=== PATIENT | female | born 1955 | race Caucasian/White ===

== ENCOUNTER → 2017-02-02 | Outpatient (CLI) | payer BC ==
[~2017-02-02] MED LIST: ALBUTEROL0.63 MG/3 INH; COMBIVENT0.074 GM/I INH; DALIRESP500 MCG PO; HYDROCHLOROTHIA25 MG PO; INCRUSE ELLI62.5 MCG INH; LEVAQUIN750 MG PO; LEXAPRO10 MG PO; METOPROLOL TART25 MG PO; MUCINEX600 MG PO; PREDNISONE10 M1 PO; PREDNISONE10 MG PO; SYMBICORT 16010.2 GM INH
== END ==
LOC: HEART 5 13:56
DX: J44.1 Chronic obstructive pulmonary disease with (acute) exacerbation (principal); J43.9 Emphysema, unspecified; I51.7 Cardiomegaly; J98.4 Other disorders of lung
CPT/HCPCS: 71020-FX

== ENCOUNTER → 2017-02-03 | Outpatient (CLI) | payer BC | LOC: LAB 15:39 | DX: J44.1 Chronic obstructive pulmonary disease with (acute) exacerbation (principal) | CPT/HCPCS: 87070; 87205 ==

== ENCOUNTER 2017-03-29 04:14 | Inpatient (IN) | payer BC ==
[~2017-03-29] VITALS: Ht 162.6 cm; Wt 65.8 kg
[2017-03-29 05:14] LABS: HEMOGLOBIN 13.1 gm/dl (12.3-15.3); RED BLOOD COUNT 4.56 M/UL (4.00-5.10); WHITE BLOOD COUNT 16.2 K/UL (4.5-11.0)
[2017-03-29 05:46] LABS: BUN/CREATININE RATIO 27 (0-10)
[2017-03-29] MEDS ORDERED: SYMBICORT 16010.2 GM INH (11:25)
[2017-03-29] MEDS ORDERED: INCRUSE ELLI62.5 MCG INH (11:26)
[2017-03-29] MEDS ORDERED: ALBUTEROL0.63 MG/3 INH (11:26)
[2017-03-29] MEDS ORDERED: DALIRESP500 MCG PO (11:26)
[2017-03-29] MEDS ORDERED: HYDROCHLOROTHIA25 MG PO (11:27)
[2017-03-29] MEDS ORDERED: LEXAPRO10 MG PO (11:27)
[2017-03-29] MEDS ORDERED: COMBIVENT0.074 GM/I INH (11:28)
[2017-03-30 05:12] LABS: HEMOGLOBIN 12.7 gm/dl (12.3-15.3); RED BLOOD COUNT 4.46 M/UL (4.00-5.10); WHITE BLOOD COUNT 15.9 K/UL (4.5-11.0)
[2017-03-30 05:41] LABS: BUN/CREATININE RATIO 30 (0-10)
[2017-03-31 03:33] LABS: HEMOGLOBIN 13.2 gm/dl (12.3-15.3); RED BLOOD COUNT 4.56 M/UL (4.00-5.10); WHITE BLOOD COUNT 17.2 K/UL (4.5-11.0)
[2017-03-31 03:49] LABS: BUN/CREATININE RATIO 37 (0-10)
[2017-04-01 04:58] LABS: HEMOGLOBIN 14.3 gm/dl (12.3-15.3); RED BLOOD COUNT 4.93 M/UL (4.00-5.10); WHITE BLOOD COUNT 16.8 K/UL (4.5-11.0)
[2017-04-01 05:12] LABS: BUN/CREATININE RATIO 33 (0-10)
[2017-04-04] MEDS ORDERED: MUCINEX600 MG PO (18:38)
[2017-04-04] MEDS ORDERED: METOPROLOL TART25 MG PO (18:41)
[2017-04-04] MEDS ORDERED: PREDNISONE10 M1 PO (18:42)
[2017-04-04] MEDS ORDERED: LEVAQUIN750 MG PO (18:43)
[2017-04-19] MEDS ORDERED: COMBIVENT0.074 GM/I INH (14:59)
[2017-04-26] MEDS ORDERED: PREDNISONE10 MG PO (11:28)
== END 2017-04-04 19:09 | disposition home or self-care (01) | DRG 189 ==
LOC: ER1 04:14 → PROG CARE 07:20 → MED SURG 4 07:20 → ZEROF 07:20 → PROG CARE 14:11 → MED SURG 4 03-31 13:54
PROVIDERS: Emergency Medicine; Internal Medicine; Physician Assistant; ADMIT Family Medicine
PROC: 5A09457 Assistance with Respiratory Ventilation, 24-96 Consecutive Hours, Continuous Positive Airway Pressure (ICD-10-PCS; principal; 2017-03-29)
DX: J96.22 Acute and chronic respiratory failure with hypercapnia (principal); J18.9 Pneumonia, unspecified organism; J44.0 Chronic obstructive pulmonary disease with (acute) lower respiratory infection; J44.1 Chronic obstructive pulmonary disease with (acute) exacerbation; J96.21 Acute and chronic respiratory failure with hypoxia; R60.9 Edema, unspecified; I48.91 Unspecified atrial fibrillation; I10 Essential (primary) hypertension; I35.0 Nonrheumatic aortic (valve) stenosis; R00.0 Tachycardia, unspecified; M19.90 Unspecified osteoarthritis, unspecified site; F32.9 Major depressive disorder, single episode, unspecified; Z87.891 Personal history of nicotine dependence; Z99.3 Dependence on wheelchair; Z79.01 Long term (current) use of anticoagulants; Z99.81 Dependence on supplemental oxygen; Z79.51 Long term (current) use of inhaled steroids; Z79.52 Long term (current) use of systemic steroids; Z79.899 Other long term (current) drug therapy; Z88.0 Allergy status to penicillin; Z90.710 Acquired absence of both cervix and uterus; Z98.42 Cataract extraction status, left eye; Z98.41 Cataract extraction status, right eye; Z98.890 Other specified postprocedural states; Z80.3 Family history of malignant neoplasm of breast; Z82.49 Family history of ischemic heart disease and other diseases of the circulatory system; Z83.3 Family history of diabetes mellitus
CPT/HCPCS: ECHO; 36415; 36600; 71010; 80048; 80053; 80162; 82550; 82553; 82803; 83036; 83605; 83735; 83874; 83880; 84484; 85025; 85027; 85610; 85730; 87040; 87070; 87205; 93005; 93306; 94640; 94660; 94664; 96365; 96375; 97535; 99291; J0456; J0696; J1644; J1940; J1956; J2920; J2930; J7030; J7050

== ENCOUNTER 2021-01-19 14:38 | Inpatient (IN) | payer BC, MEDICARE ==
[~2021-01-19] VITALS: Ht 162.6 cm; Wt 65.8 kg
[~2021-01-19 14:38] MED LIST changes: +DOXYCYCLINE HY100 M2 PO; +ELIQUIS 5 MG TAB5 MG PO; +HYDROCHLOROTH12.5 M1 PO; -HYDROCHLOROTHIA25 MG PO; +K-DUR TAB 10 M10 MEQ PO; +MEDROL DOSEPAK 24 MG PO; +SYMBICORT 160-1 INHA INH
[2021-01-19 15:47] LABS: HEMOGLOBIN 10.7 gm/dl (12.3-15.3); RED BLOOD COUNT 4.9 M/UL (4.00-5.10); WHITE BLOOD COUNT 15.1 K/UL (4.5-11.0)
[2021-01-19 16:23] LABS: BUN/CREATININE RATIO 24 (0-10)
[2021-01-19] MEDS ORDERED: AZITHROMYCIN500 MG PO (23:00)
[2021-01-20 03:54] LABS: HEMOGLOBIN 9.8 gm/dl (12.3-15.3); RED BLOOD COUNT 4.45 M/UL (4.00-5.10); WHITE BLOOD COUNT 12.8 K/UL (4.5-11.0)
[2021-01-20 04:27] LABS: BUN/CREATININE RATIO 26 (0-10)
[2021-01-21 04:56] LABS: BUN/CREATININE RATIO 31 (0-10)
[2021-01-22 02:27] LABS: RED BLOOD COUNT 4.09 M/UL (4.00-5.10)
[2021-01-22 02:30] LABS: WHITE BLOOD COUNT 20.3 K/UL (4.5-11.0)
[2021-01-22 02:52] LABS: BUN/CREATININE RATIO 37 (0-10)
[2021-01-23 05:18] LABS: BUN/CREATININE RATIO 44 (0-10)
[2021-01-23] MEDS ORDERED: DIGOXIN125 MCG PO (11:28)
[2021-01-23] MEDS ORDERED: LOPRESSOR 25 MG25 MG PO (11:28)
[2021-01-23] MEDS ORDERED: MEDROL4 MG PO (11:29)
--- NOTE | 2021-01-24 14:23 | NUR ---
1230: DR. BARTON AWARE OF PATIENT'S INCREASED HEART RATE. EKG ORDERED. 1330: EKG SHOWS AFIB WITH RVR. THIS IS NOTED IN PATIENT'S H/P UPON ARRIVAL. DR. BARTON AWARE OF MEDICATIONS ADMINISTERED THIS AM, INSTRUCTED TO GIVE METOPROLOL 25 MG PO. 1400: MEDICATION ADMINISTERED. PATIENT CALLED NURSE TO ROOM BECAUSE SHE STATED SHE NOW FEELS IF HER CHEST IS "FLUTTERING" AND SHE IS "SMOTHERING." CONTACTED DR. BARTON AGAIN, NEW ORDER FOR CARDIAC SCREEN AND CARDIZEM 10 MG IVP.
--- NOTE | 2021-01-24 16:08 | NUR ---
AFIB AND RVR CONTINUED DESPITE DOSE OF 10 MG IVP CARDIZEM. NEW ORDER FOR CARDIZEM DRIP AND TRANSFER TO PCU.
[2021-01-25 02:30] LABS: BUN/CREATININE RATIO 49 (0-10)
[2021-01-26 03:13] LABS: BUN/CREATININE RATIO 43 (0-10)
[2021-01-26 10:04] LABS: HEMOGLOBIN 8.3 gm/dl (12.3-15.3); RED BLOOD COUNT 3.76 M/UL (4.00-5.10); WHITE BLOOD COUNT 14.3 K/UL (4.5-11.0)
[2021-01-26] MEDS ORDERED: ASPIRIN EC81 MG PO (11:36)
[2021-01-26] MEDS ORDERED: AMIODARONE HCL200 MG PO (11:36)
[2021-01-26 14:11] LABS: ORGANISM ID Not indicated. (.); SPECIMEN SOURCE Urine (.); STREPTOCOCCUS PNEUMONIAE AG Negative (Negative)
== END 2021-01-26 17:54 | disposition short-term general hospital (02) | DRG 177 ==
LOC: ER1 14:38 → CDU 17:47 → PROG CARE 17:47 → UNDODEPER 01-20 14:40 → PROG CARE 01-20 16:47 → M/S 01-23 17:01 → MED SURG 4 01-24 06:02 → PROG CARE 01-24 16:18
PROVIDERS: Internal Medicine; Physician Assistant; Student in an Organized Health Care Education/Training Program; ADMIT Internal Medicine
DX: J69.0 Pneumonitis due to inhalation of food and vomit (principal); J96.21 Acute and chronic respiratory failure with hypoxia; J96.22 Acute and chronic respiratory failure with hypercapnia; J44.1 Chronic obstructive pulmonary disease with (acute) exacerbation; I31.3 Pericardial effusion (noninflammatory); J44.0 Chronic obstructive pulmonary disease with (acute) lower respiratory infection; I48.91 Unspecified atrial fibrillation; Z96.1 Presence of intraocular lens; J84.10 Pulmonary fibrosis, unspecified; I10 Essential (primary) hypertension; Z20.822 Contact with and (suspected) exposure to COVID-19; G56.02 Carpal tunnel syndrome, left upper limb; Z90.721 Acquired absence of ovaries, unilateral; Z88.1 Allergy status to other antibiotic agents; Z82.49 Family history of ischemic heart disease and other diseases of the circulatory system; Z80.9 Family history of malignant neoplasm, unspecified; Z86.16 Personal history of COVID-19; Z84.89 Family history of other specified conditions; Z83.3 Family history of diabetes mellitus; Z89.011 Acquired absence of right thumb; Z98.49 Cataract extraction status, unspecified eye; Z87.891 Personal history of nicotine dependence
CPT/HCPCS: ECHO; 0240U; 36415; 36600; 71045; 80048; 80053; 80202; 82550; 82553; 82803; 83605; 83735; 83874; 83880; 84439; 84443; 84484; 85025; 85379; 86140; 86738; 87040; 87278; 87899; 93005; 93306; 93308; 93971; 94640; 94664; 94760; 96365; 96366; 96367; 96375; 99285; J0692; J0696; J1160; J2920; J3370; J7070; J7120

== ENCOUNTER → 2021-02-18 | Outpatient (CLI) | payer BC, MEDICARE ==
[~2021-02-18] MED LIST changes: +AMIODARONE HCL200 MG PO; +ASPIRIN EC81 MG PO; +AZITHROMYCIN500 MG PO; +DIGOXIN125 MCG PO; +LEVOFLOXACIN500 MG PO; +LOPRESSOR 25 MG25 MG PO; +MEDROL4 MG PO; +SPIRIVA HANDIH18 MCG INH; +SPIRIVA RESPIMAT4 GM INH
== END ==
LOC: RAD 17:42
DX: Z00.01 Encounter for general adult medical examination with abnormal findings (principal); J43.9 Emphysema, unspecified; J18.9 Pneumonia, unspecified organism
CPT/HCPCS: 71046

== ENCOUNTER 2021-04-09 15:38 | Observation (INO) | payer BC, MEDICARE ==
[~2021-04-09] VITALS: Ht 162.6 cm; Wt 64.1 kg
[~2021-04-09 15:38] MED LIST changes: -LEVOFLOXACIN500 MG PO; -SPIRIVA HANDIH18 MCG INH; -SPIRIVA RESPIMAT4 GM INH
[2021-04-09 15:58] LABS: HEMOGLOBIN 10.3 gm/dl (12.3-15.3); RED BLOOD COUNT 4.33 M/UL (4.00-5.10); WHITE BLOOD COUNT 9.9 K/UL (4.5-11.0)
[2021-04-09 16:34] LABS: BUN/CREATININE RATIO 26 (0-10)
[2021-04-09] MEDS ORDERED: SPIRIVA HANDIH18 MCG INH (20:04)
[2021-04-09] MEDS ORDERED: SPIRIVA RESPIMAT4 GM INH (20:07)
[2021-04-09] MEDS ORDERED: DIGOXIN125 MCG PO (20:08)
[2021-04-09] MEDS ORDERED: AMIODARONE HCL200 MG PO (20:09)
[2021-04-10 02:32] LABS: HEMOGLOBIN 8.4 gm/dl (12.3-15.3); WHITE BLOOD COUNT 8.2 K/UL (4.5-11.0)
[2021-04-10 02:35] LABS: RED BLOOD COUNT 3.54 M/UL (4.00-5.10)
[2021-04-10 03:00] LABS: BUN/CREATININE RATIO 25 (0-10)
[2021-04-11 05:18] LABS: HEMOGLOBIN 8.2 gm/dl (12.3-15.3); RED BLOOD COUNT 3.47 M/UL (4.00-5.10)
[2021-04-11 05:19] LABS: WHITE BLOOD COUNT 12.1 K/UL (4.5-11.0)
[2021-04-11 05:42] LABS: BUN/CREATININE RATIO 33 (0-10)
[2021-04-11] MEDS ORDERED: MEDROL DOSEPAK 24 MG PO (11:59)
[2021-04-11] MEDS ORDERED: LEVOFLOXACIN500 MG PO (12:00)
== END 2021-04-11 13:49 | disposition home or self-care (01) ==
LOC: ER1 15:38 → PROG CARE 18:11 → CDU 18:11 → PROG CARE 20:02 → M/S 04-10 15:54
PROVIDERS: Emergency Medicine; ADMIT Family Medicine
DX: J44.0 Chronic obstructive pulmonary disease with (acute) lower respiratory infection (principal); J20.9 Acute bronchitis, unspecified; J44.1 Chronic obstructive pulmonary disease with (acute) exacerbation; J96.22 Acute and chronic respiratory failure with hypercapnia; J96.21 Acute and chronic respiratory failure with hypoxia; E87.6 Hypokalemia; J98.4 Other disorders of lung; I31.3 Pericardial effusion (noninflammatory); I48.0 Paroxysmal atrial fibrillation; Z99.81 Dependence on supplemental oxygen; Z99.89 Dependence on other enabling machines and devices; Z86.16 Personal history of COVID-19; Z87.891 Personal history of nicotine dependence; Z88.1 Allergy status to other antibiotic agents; Z79.01 Long term (current) use of anticoagulants; Z79.82 Long term (current) use of aspirin; Z79.899 Other long term (current) drug therapy; Z20.822 Contact with and (suspected) exposure to COVID-19
CPT/HCPCS: ECHO; 0240U; 36415; 36600; 71045; 80053; 80202; 82550; 82553; 82803; 83605; 83690; 83735; 83880; 84484; 85025; 85379; 85610; 85730; 93005; 93306; 94640; 94660; 94664; 94760; 96374; 96375; 96376; 99285; G0378; J2920; J3370; J7070

== ENCOUNTER → 2021-06-29 | Outpatient (CLI) | payer OTHER ==
[~2021-06-29] MED LIST changes: +LEVOFLOXACIN500 MG PO; +SPIRIVA HANDIH18 MCG INH; +SPIRIVA RESPIMAT4 GM INH
[2021-06-29 18:44] LABS: HEMOGLOBIN 10.9 gm/dl (12.3-15.3); RED BLOOD COUNT 4.63 M/UL (4.00-5.10); WHITE BLOOD COUNT 13.1 K/UL (4.5-11.0)
[2021-06-29 19:04] LABS: BUN/CREATININE RATIO 42 (0-10)
== END ==
LOC: LAB 17:52
PROVIDERS: Family Medicine
DX: R11.0 Nausea (principal); J34.89 Other specified disorders of nose and nasal sinuses; D50.9 Iron deficiency anemia, unspecified; Z20.822 Contact with and (suspected) exposure to COVID-19
CPT/HCPCS: 36415; 80053; 82728; 83540; 83550; 85025; 85045; U0002

== ENCOUNTER → 2021-07-29 | Outpatient (CLI) | payer OTHER | LOC: KOH-I 07-21 13:00 | DX: R91.1 Solitary pulmonary nodule (principal); J43.9 Emphysema, unspecified | CPT/HCPCS: 71250 ==

== ENCOUNTER 2021-07-30 15:14 | Emergency (ER) | payer OTHER | END 2021-07-30 17:15 | disposition home or self-care (01) | LOC: ER1 15:14 | DX: S51.811A Laceration without foreign body of right forearm, initial encounter (principal); J44.9 Chronic obstructive pulmonary disease, unspecified; Z88.0 Allergy status to penicillin; Z87.898 Personal history of other specified conditions; W26.8XXA Contact with other sharp object(s), not elsewhere classified, initial encounter; Y92.009 Unspecified place in unspecified non-institutional (private) residence as the place of occurrence of the external cause | CPT/HCPCS: 12001; 90715; 99282 ==

== ENCOUNTER 2021-09-01 16:32 | Inpatient (IN) | payer OTHER ==
[~2021-09-01] VITALS: Ht 162.6 cm; Wt 58.6 kg
[~2021-09-01 16:32] MED LIST changes: +COMBIVENT RESPIM4 GM INH
[2021-09-01 17:33] LABS: HEMOGLOBIN 10.3 gm/dl (12.3-15.3); RED BLOOD COUNT 3.82 M/UL (4.00-5.10); WHITE BLOOD COUNT 19.9 K/UL (4.5-11.0)
[2021-09-01 18:48] LABS: BUN/CREATININE RATIO 46 (0-10)
[2021-09-02] MEDS ORDERED: FERROUS GLUCON240 MG PO (10:34)
[2021-09-02] MEDS ORDERED: IPRAT-ALBUT 0.5-3 ML INH (10:34)
[2021-09-02] MEDS ORDERED: FLONASE 0.05% N16 GM (10:35)
[2021-09-02] MEDS ORDERED: PROMETHAZINE12.5 M1 PO (10:35)
[2021-09-02] MEDS ORDERED: COLACE100 MG PO (10:35)
[2021-09-02 17:21] LABS: HEMOGLOBIN 9.8 gm/dl (12.3-15.3); RED BLOOD COUNT 3.6 M/UL (4.00-5.10); WHITE BLOOD COUNT 17.5 K/UL (4.5-11.0)
[2021-09-03 03:11] LABS: HEMOGLOBIN 8.7 gm/dl (12.3-15.3); RED BLOOD COUNT 3.22 M/UL (4.00-5.10); WHITE BLOOD COUNT 24.2 K/UL (4.5-11.0)
[2021-09-03 03:31] LABS: BUN/CREATININE RATIO 38 (0-10)
[2021-09-04 05:00] LABS: HEMOGLOBIN 8.1 gm/dl (12.3-15.3); RED BLOOD COUNT 2.97 M/UL (4.00-5.10)
[2021-09-04 05:06] LABS: WHITE BLOOD COUNT 14.7 K/UL (4.5-11.0)
[2021-09-04 05:17] LABS: BUN/CREATININE RATIO 39 (0-10)
--- NOTE | 2021-09-04 05:28 | NUR ---
PATIENTS POTASSIUM IS 3.1. NOTIFIED DR GUTIERREZ OF RESULTS. NO NEW ORDERS AT THIS TIME.
[2021-09-04] MEDS ORDERED: PREDNISONE 5 MG5 MG GT (10:01)
[2021-09-04] MEDS ORDERED: DOXYCYCLINE HY100 MG PO (10:01)
[2021-09-04] MEDS ORDERED: LOPRESSOR 25 MG25 MG PO (10:01)
--- NOTE | 2021-09-04 11:33 | NUR ---
09/04/[address] RIOS (PULMONOLOGY) NOTIFIED OF CONSULT. UPDATED ON PT STATUS ETC.
== END 2021-09-04 11:25 | disposition home health service (06) | DRG 189 ==
LOC: ER1 16:32 → CDU 09-02 03:12 → PROG CARE 09-02 03:12
PROVIDERS: Internal Medicine; ADMIT Internal Medicine
PROC: 5A09457 Assistance with Respiratory Ventilation, 24-96 Consecutive Hours, Continuous Positive Airway Pressure (ICD-10-PCS; principal; 2021-09-02)
DX: J96.21 Acute and chronic respiratory failure with hypoxia (principal); E43 Unspecified severe protein-calorie malnutrition; J44.1 Chronic obstructive pulmonary disease with (acute) exacerbation; I50.32 Chronic diastolic (congestive) heart failure; Z68.1 Body mass index [BMI] 19.9 or less, adult; J96.22 Acute and chronic respiratory failure with hypercapnia; F17.210 Nicotine dependence, cigarettes, uncomplicated; I25.10 Atherosclerotic heart disease of native coronary artery without angina pectoris; D64.9 Anemia, unspecified; I11.0 Hypertensive heart disease with heart failure; F41.9 Anxiety disorder, unspecified; I95.2 Hypotension due to drugs; Z96.1 Presence of intraocular lens; I48.0 Paroxysmal atrial fibrillation; E88.09 Other disorders of plasma-protein metabolism, not elsewhere classified; Z86.16 Personal history of COVID-19; Z99.81 Dependence on supplemental oxygen; Z98.890 Other specified postprocedural states; Z87.01 Personal history of pneumonia (recurrent); Z82.49 Family history of ischemic heart disease and other diseases of the circulatory system; Z90.10 Acquired absence of unspecified breast and nipple; Z98.41 Cataract extraction status, right eye; Z98.42 Cataract extraction status, left eye; Z83.3 Family history of diabetes mellitus; Z83.6 Family history of other diseases of the respiratory system; Z79.82 Long term (current) use of aspirin; Z79.899 Other long term (current) drug therapy; Z79.52 Long term (current) use of systemic steroids; Z88.8 Allergy status to other drugs, medicaments and biological substances; Z91.14 Patient's other noncompliance with medication regimen
CPT/HCPCS: 36415; 36600; 71045; 80053; 80202; 82550; 82553; 82803; 82962; 83605; 83874; 83880; 84484; 85025; 85027; 86140; 87040; 94640; 94660; 94664; 94760; 96374; 96375; 99285; J0456; J0696; J1100; J1956; J2920; J2930; J3370; J7050; J7070; Q9967; U0002

== ENCOUNTER 2021-09-23 15:59 | Emergency (ER) | payer OTHER ==
[~2021-09-23 15:59] MED LIST changes: +COLACE100 MG PO; +DOXYCYCLINE HY100 MG PO; +FERROUS GLUCON240 MG PO; +FLONASE 0.05% N16 GM; +IPRAT-ALBUT 0.5-3 ML INH; +PREDNISONE 5 MG5 MG GT; +PROMETHAZINE12.5 M1 PO
== END 2021-09-23 16:46 | disposition home or self-care (01) ==
LOC: ER1 15:59
DX: R09.02 Hypoxemia (principal); J44.9 Chronic obstructive pulmonary disease, unspecified; Z87.891 Personal history of nicotine dependence; Z88.0 Allergy status to penicillin
CPT/HCPCS: 99283

== ENCOUNTER 2021-10-11 18:33 | Emergency (ER) | payer OTHER ==
[2021-10-11 19:24] LABS: HEMOGLOBIN 8.2 gm/dl (12.3-15.3); RED BLOOD COUNT 3.06 M/UL (4.00-5.10); WHITE BLOOD COUNT 15.5 K/UL (4.5-11.0)
[2021-10-11 19:50] LABS: BUN/CREATININE RATIO 67 (0-10)
[2021-10-11] MEDS ORDERED: TAMIFLU 75 MG C75 MG PO (22:04)
== END 2021-10-11 23:20 | disposition home or self-care (01) ==
LOC: ER1 18:33
PROVIDERS: Family Medicine
DX: J10.1 Influenza due to other identified influenza virus with other respiratory manifestations (principal); Z20.822 Contact with and (suspected) exposure to COVID-19; J44.9 Chronic obstructive pulmonary disease, unspecified; I48.91 Unspecified atrial fibrillation
CPT/HCPCS: 36600; 71045; 80053; 82550; 82553; 82803; 83605; 83874; 84439; 84443; 84484; 85025; 85610; 87040; 94664; 99285; J7030; Q9967; U0002

== ENCOUNTER 2021-10-23 03:20 | Inpatient (IN) | payer OTHER ==
[~2021-10-23] VITALS: Ht 162.6 cm; Wt 49.4 kg
[~2021-10-23 03:20] MED LIST changes: -IPRAT-ALBUT 0.5-3 ML INH; +TAMIFLU 75 MG C75 MG PO
[2021-10-23 06:28] LABS: BUN/CREATININE RATIO 79 (0-10)
[2021-10-23 06:41] LABS: RED BLOOD COUNT 2.11 M/UL (4.00-5.10)
[2021-10-23 06:42] LABS: HEMOGLOBIN 5.7 gm/dl (12.3-15.3)
[2021-10-23] MEDS ORDERED: IPRAT-ALBUT 0.5-3 ML NEB (10:34)
[2021-10-23] MEDS ORDERED: METOPROLOL TART25 MG PO (12:04)
[2021-10-24 05:45] LABS: HEMOGLOBIN 11.4 gm/dl (12.3-15.3)
[2021-10-24 05:46] LABS: RED BLOOD COUNT 4.02 M/UL (4.00-5.10); WHITE BLOOD COUNT 23.1 K/UL (4.5-11.0)
[2021-10-24 06:14] LABS: BUN/CREATININE RATIO 66 (0-10)
[2021-10-25 04:56] LABS: HEMOGLOBIN 10.9 gm/dl (12.3-15.3); RED BLOOD COUNT 3.81 M/UL (4.00-5.10); WHITE BLOOD COUNT 19.2 K/UL (4.5-11.0)
[2021-10-25 05:26] LABS: BUN/CREATININE RATIO 66 (0-10)
[2021-10-26 05:40] LABS: RED BLOOD COUNT 3.88 M/UL (4.00-5.10); WHITE BLOOD COUNT 18.7 K/UL (4.5-11.0)
[2021-10-26 06:03] LABS: BUN/CREATININE RATIO 55 (0-10)
[2021-10-27 05:39] LABS: HEMOGLOBIN 10.2 gm/dl (12.3-15.3); RED BLOOD COUNT 3.67 M/UL (4.00-5.10); WHITE BLOOD COUNT 14.9 K/UL (4.5-11.0)
[2021-10-27 06:10] LABS: BUN/CREATININE RATIO 56 (0-10)
[2021-10-28 05:56] LABS: HEMOGLOBIN 11.5 gm/dl (12.3-15.3); RED BLOOD COUNT 4.04 M/UL (4.00-5.10); WHITE BLOOD COUNT 17.3 K/UL (4.5-11.0)
[2021-10-28 06:13] LABS: BUN/CREATININE RATIO 47 (0-10)
--- NOTE | 2021-10-28 18:21 | NUR ---
1500 LONG DISCUSSION WITH PATIENT'S , MOTHER AND DAUGHTER RE: PT'S PROGNOSIS AND PLAN OF CARE. DR BARTON EXPLAINED THE SEVERITY OF HER LUNG DISEASE AND PNEUMONIA AND THE INCREASED NEED FOR BP SUPPORT MEDS. AND DAUGHTER AGREE THAT PT WOULD NOT WANT VENTILATOR OR CPR SO PT MADE DNR. INFORMED THEM OF COMFORT CARE OPTIONS AND AND DAUGHTER ARE AGREEABLE. PT'S MOTHER NOTEABLY UPSET AND AGREES WITH 'S WISHES. PT MADE DNR WITH COMFORT MEASURES. RESTING QUIETLY AND FAMILY DOES NOT FEEL NEED FOR ANY MEDICATIONS AT THIS TIME.
--- NOTE | 2021-10-28 22:59 | NUR ---
PT AND CONFIRMED BY A SECOND NURSE AT 22:45. MD NOTIFIED. ALL LOBES ASCULTATED, NO BREATH SOUNDS. NO PULSE. ALL LINES TO BE REMOVED. ALLOWING PATIENTS FAMILY TIME WITH THE PATIENT.
--- NOTE | 2021-10-28 23:49 | NUR ---
ALL LINES REMOVED
== END 2021-10-28 22:45 | disposition expired | DRG 871 ==
LOC: ER1 03:20 → CDU 08:51 → CCU 08:51 → PROG CARE 10-28 13:52
PROVIDERS: Internal Medicine; Physician Assistant; ADMIT Internal Medicine
PROC: 05HM33Z Insertion of Infusion Device into Right Internal Jugular Vein, Percutaneous Approach (ICD-10-PCS; principal; 2021-10-23)
PROC: 30233N1 Transfusion of Nonautologous Red Blood Cells into Peripheral Vein, Percutaneous Approach (ICD-10-PCS; 2021-10-23)
PROC: 3E033XZ Introduction of Vasopressor into Peripheral Vein, Percutaneous Approach (ICD-10-PCS; 2021-10-23)
DX: A40.3 Sepsis due to Streptococcus pneumoniae (principal); L89.153 Pressure ulcer of sacral region, stage 3; R65.21 Severe sepsis with septic shock; J18.9 Pneumonia, unspecified organism; Z20.822 Contact with and (suspected) exposure to COVID-19; J96.21 Acute and chronic respiratory failure with hypoxia; A41.89 Other specified sepsis; J44.0 Chronic obstructive pulmonary disease with (acute) lower respiratory infection; K92.2 Gastrointestinal hemorrhage, unspecified; N30.00 Acute cystitis without hematuria; D62 Acute posthemorrhagic anemia; E44.0 Moderate protein-calorie malnutrition; Z68.1 Body mass index [BMI] 19.9 or less, adult; Z66 Do not resuscitate; I48.0 Paroxysmal atrial fibrillation; L89.156 Pressure-induced deep tissue damage of sacral region; R53.83 Other fatigue; K59.00 Constipation, unspecified; E86.0 Dehydration; B96.1 Klebsiella pneumoniae [K. pneumoniae] as the cause of diseases classified elsewhere; K82.8 Other specified diseases of gallbladder; Z86.16 Personal history of COVID-19; Z90.710 Acquired absence of both cervix and uterus; Z90.89 Acquired absence of other organs; Z98.49 Cataract extraction status, unspecified eye; Z98.890 Other specified postprocedural states; Z80.3 Family history of malignant neoplasm of breast; Z82.49 Family history of ischemic heart disease and other diseases of the circulatory system; Z51.5 Encounter for palliative care
CPT/HCPCS: 36415; 36430; 36600; 70450; 71045; 76705; 80048; 80053; 80202; 81001; 82272; 82550; 82553; 82803; 83605; 83615; 83690; 83874; 83880; 84132; 84484; 85018; 85025; 85027; 86140; 86850; 86900; 86901; 86920; 87040; 87077; 87081; 87086; 87186; 93005; 94640; 94660; 94664; 94760; 96374; 99285; C9113; J1335; J1956; J2185; J2270; J3370; J3480; J7030; P9016; U0002